=== PATIENT | male | born 2000 | race Caucasian/White ===

== ENCOUNTER 2022-11-18 21:05 | Emergency (ER) | payer MEDICAID ==
[~2022-11-18] VITALS: Ht 165.1 cm; Wt 59.0 kg
[2022-11-18 21:20] VITALS: BP_SYST 116
--- NOTE | 2022-11-18 21:22 | NUR ---
ER examining patient.
[2022-11-18 22:11] VITALS: BP_SYST 116
--- NOTE | 2022-11-18 22:11 | NUR ---
Patient medically cleared, was given written and verbal discharge instructions and verbalizes understanding. ER MD discussed with patient the care provided. Patient in stable condition. No Rx given. Patient educated on pain management and to follow up with [facility]D. Opportunity for questions provided and answered. Patient accompanied by law enforcement officers in handcuffs.
== END 2022-11-18 22:11 ==
LOC: SED 21:05
DX: Z02.89 Encounter for other administrative examinations (principal)
CPT/HCPCS: 99283